=== PATIENT | female | born 1950 | race Caucasian/White ===

== ENCOUNTER → 2020-07-21 13:05 | Outpatient (CLI) | payer MEDICARE, SELFPAY ==
--- NOTE | ~2020-07-21 | US_ITS ---
EXAMINATION: US thyroid DATE: 07/21/2020 13:27 INDICATION: Single nontoxic thyroid nodule. TECHNIQUE: Multiple ultrasound images of the thyroid were obtained. COMPARISON: None. FINDINGS: The right thyroid lobe measures 6.4 x 2.6 x 2.1 cm. The left thyroid lobe measures 6.5 x 2.6 x 1.3 c m. The thyroid demonstrates diffusely heterogeneous echogenicity. Vascularity is normal. In the righ t thyroid lobe, there is a 1.9 cm solid, very hypoechoic, thphf-dzvy-enwp nodule with smooth margin w ithout echogenic foci (TI-RADS TR4). In the left thyroid lobe, there is a 1.5 cm solid, very hypoecho ic, ugypa-mmbu-divd nodule with ill-defined margin without echogenic foci (TR4). In the left thyroid lobe, there is a 10 mm solid, hypoechoic, rqcta-ozmd-ltin nodule with ill-defined margin without echo genic foci (TR4). IMPRESSION: 1. Multinodular goiter. Ultrasound-guided fine-needle aspiration of the 2 largest nodules is recommen ded. Reviewed, dictated and finalized at location A. IMPRESSION: 1. Multinodular goiter. Ultrasound-guided fine-needle aspiration of the [address] nodules is recommended.
== END ==
PROVIDERS: PCP Family Medicine; Visit Provider Family Medicine
DX: E04.2 Nontoxic multinodular goiter (principal)
CPT/HCPCS: 76536

== ENCOUNTER 2020-08-02 09:08 | Outpatient (CLI) | payer MEDICARE, SELFPAY ==
--- NOTE | ~2020-08-02 | US_ITS ---
EXAMINATION: US FNA w image guidance, US FNA additional DATE: 08/02/2020 10:27 INDICATION: Bilateral thyroid nodules TECHNIQUE: A time-out was performed to verify the patient's name, date of , and procedure to be performed . The procedure and its benefits and risks were discussed with the patient. Risks specifically discus sed included bleeding and infection. The patient understood the risks and agreed to proceed. The righ t neck was prepped and draped in the usual sterile manner. 2.5 mL 1% lidocaine was used for local an esthesia. 6 passes were made with a 25G needle into the lesion. Appropriate needle location was doc umented with continuous sonographic guidance. Attention was then turned to the left thyroid nodule. T he left neck was prepped and draped in the usual sterile manner. 3 mL 1% lidocaine was used for loca l anesthesia. 6 passes were made with a 25G needle into the lesion. Appropriate needle location was documented with continuous sonographic guidance. A sterile bandage was applied. There were no immed iate complications. FINDINGS: Grayscale ultrasound images demonstrate biopsy needles advanced into a 2.1 cm hypoechoic nodule at th e inferior right thyroid lobe. Subsequent images demonstrate biopsy needles advanced into a 1.2 cm hy poechoic nodule at the left thyroid lobe. IMPRESSION: 1. Successful ultrasound-guided fine needle aspiration of the hypoechoic solid right thyroid nodule of concern measuring 2.1 cm in the current study. 2. Successful ultrasound-guided fine-needle aspiration of the hypoechoic solid left thyroid nodule of concern measuring 1.2 cm in the current study. Reviewed, dictated and finalized at location A. [employer] IMPRESSION: 1. Successful ultrasound-guided fine needle aspiration of the hypoechoic solid right thyroid nodule of concern measuring 2.1 cm in the current study. 2. Successful ultrasound-guided fine-needle aspiration of the hypoechoic solid left thyroid nodule of concern measuring 1.2 cm in the current study.
== END 2020-08-02 09:09 | disposition home or self-care (01) ==
PROVIDERS: PCP Family Medicine; Visit Provider Family Medicine
DX: E04.2 Nontoxic multinodular goiter (principal)
CPT/HCPCS: 10005; 10006; 88173; 88305; 88342

== ENCOUNTER → 2020-12-18 00:51 | Outpatient (CLI) | payer MEDICARE, SELFPAY ==
[2020-12-18 19:13] LABS: SARS-CoV-2 RNA PCR Negative
== END ==
PROVIDERS: PCP Family Medicine; Visit Provider Internal Medicine Gastroenterology
DX: Z01.812 Encounter for preprocedural laboratory examination (principal); Z20.822 Contact with and (suspected) exposure to COVID-19
CPT/HCPCS: C9803; U0003; U0005

== ENCOUNTER 2020-12-22 02:22 | Day surgery (SDC) | payer MEDICARE, SELFPAY ==
[2020-12-09 10:34] VITALS: BMI 48.2
[2020-12-22 08:56] VITALS: BP 115/96; PULSE 86; RESP 18; TEMP 36.2; O2SAT 98; BMI 47.2
[2020-12-22] MEDS: LACTATED RINGERS 1,000 ML 150 ML IV CONT (09:07)
--- NOTE | 2020-12-22 09:26 | P.PNAN_ITS ---
Anes - Initial Pre Proc Eval Procedure: Operation Date: 12/22/20 10:00 Proposed Procedures p Screening Colonoscopy - Brian Magana MD Date/Time: 12/22/20 09:26 Surgeon: Brian Magana MD Pre Op Diagnosis: neoplasm screening Patient Data Age: 70 Gender: F Height: 5 ft 2 in Weight: 117 kg Last Vital Signs Temp 97.1 F L 12/22/20 08:56 Pulse 86 12/22/20 08:56 Resp 18 12/22/20 08:56 BP 115/96 H 12/22/20 08:56 Pulse Ox 98 12/22/20 08:56 Allergies Allergy/AdvReac Type Severity Reaction Status Date / Time No Known Allergies Allergy Verified 12/22/20 08:54 Home Medications Medication Instructions Recorded Confirmed Type Adult Multivitamin Extra VitD3 1 tablet PO DAILY 12/09/20 12/22/20 History Caltrate 600 plus D 1 tablet PO BID 12/09/20 12/22/20 History atorvastatin 20 mg PO DAILY 12/09/20 12/22/20 History levothyroxine 150 mcg PO DAILY 12/09/20 12/22/20 History meloxicam 7.5 mg PO DAILY 12/09/20 12/22/20 History niacin 500 mg PO QAM 12/09/20 12/22/20 History pravastatin 20 mg PO DAILY 12/09/20 12/22/20 History Patient hx anesthesia problems: none Family hx anesthesia problems: none PMFSH Past Medical History Medical History (Updated 12/22/20 @ 09:26 by Hunter Montes De Oca MD) Anemia Hyperlipidemia Morbid obesity Family History Family History (Updated 05/17/17 @ 13:29 by DOCTOR UNKNOWN) Mother Family history of malignant neoplasm of ovary Father Family history of heart disease in male family member before age 55 Social History Social History Smoking status: Never smoker Alcohol intake: current Drinks per week: 1 Alcohol use details: WINE Substance use: never Substance use type: does not use Living arrangements: alone Additional living arrangements comments: 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 SHE STATES IT WILL BE HER BROTHER OR SISTER. Gender identity (if verbalized by the patient): Female Spiritual care concerns: No Anes - Eval Final PreProcedure Day of Procedure 12/22/20 09:26 Patient weight: morbidly obese Heart: regular rate and rhythm Lungs: clear to auscultation Airway: Mallampati scale class III Neurological: alert and oriented Last oral intake: >/= 8 hours ASA classification: III Emergent: no Anesthetic plan: proceed Anesthesia type and monitoring: general GIVS and standard monitoring Informed Consent: The patient's anesthetic plan and its attendant risks and benefits were discussed with the patient/family/POA. Questions were solicited and answers provided to the satisfaction of the patient/family/POA.
--- NOTE | 2020-12-22 09:44 | P.HP_ITS ---
History of Present Illness History of Present Illness Consent: Risks, benefits, and alternatives have been discussed and questions answered. Patient agrees to proceed with procedure. Chief complaint: neoplasm screening Narrative: Naomy Perez is a 70 year old female here for colon cancer screening. She did have a polyp removed 10 years ago Review of Systems Review of Systems: All systems reviewed & are unremarkable except as noted in HPI and below PMFSH Past Medical History Medical History Anemia Hyperlipidemia Morbid obesity Family History Family History Mother Family history of malignant neoplasm of ovary Father Family history of heart disease in male family member before age 55 Social History Social History Smoking status: Never smoker Alcohol intake: current Drinks per week: 1 Alcohol use details: WINE Substance use: never Substance use type: does not use Living arrangements: alone Additional living arrangements comments: 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 SHE STATES IT WILL BE HER BROTHER OR SISTER. Gender identity (if verbalized by the patient): Female Spiritual care concerns: No Meds Home Medications and Allergies Home Medications Medication Instructions Recorded Confirmed Type Adult Multivitamin Extra VitD3 1 tablet PO DAILY 12/09/20 12/22/20 History Caltrate 600 plus D 1 tablet PO BID 12/09/20 12/22/20 History atorvastatin 20 mg PO DAILY 12/09/20 12/22/20 History levothyroxine 150 mcg PO DAILY 12/09/20 12/22/20 History meloxicam 7.5 mg PO DAILY 12/09/20 12/22/20 History niacin 500 mg PO QAM 12/09/20 12/22/20 History pravastatin 20 mg PO DAILY 12/09/20 12/22/20 History Allergies Allergy/AdvReac Type Severity Reaction Status Date / Time No Known Allergies Allergy Verified 12/22/20 08:54 Vital Signs Vital Signs - 24 hr 12/22/20 08:56 Temperature 36.2 C L Pulse Rate 86 Respiratory Rate 18 Blood Pressure 115/96 H Pulse Oximetry 98 Exam Resp: Auscultation: clear to auscultation bilaterally Cardio: Rate: regular rate Rhythm: regular rhythm GI: GI Palp: Yes Soft to palpation and No Tenderness to palpation present (GI) Assessment and Plan Assessment and plan (1) Colon cancer screening: Code(s): Z12.11 - Encounter for screening for malignant neoplasm of colon Status: Acute Assessment and Plan: Colonoscopy with possible biopsy or polypectomy or cautery or injection of substances.
[2020-12-22 10:18] VITALS: BP 114/76; PULSE 80; RESP 21; O2SAT 98
[2020-12-22 10:28] VITALS: BP 115/86; PULSE 77; RESP 21; O2SAT 100
[2020-12-22 10:38] VITALS: BP 105/82; PULSE 79; RESP 20; O2SAT 100
== END 2020-12-22 10:47 | disposition home or self-care (01) ==
PROVIDERS: PCP Family Medicine; Visit Provider Internal Medicine Gastroenterology
PROC: 0DJD8ZZ Inspection of Lower Intestinal Tract, Via Natural or Artificial Opening Endoscopic (ICD-10-PCS; CPT 45378; principal; 2020-12-22 10:00)
DX: Z12.11 Encounter for screening for malignant neoplasm of colon (principal); K57.30 Diverticulosis of large intestine without perforation or abscess without bleeding; Z86.010 Personal history of colon polyps; E78.5 Hyperlipidemia, unspecified; D64.9 Anemia, unspecified; E66.01 Morbid (severe) obesity due to excess calories; Z68.42 Body mass index [BMI] 45.0-49.9, adult
CPT/HCPCS: G0105; C9803; J2704; J7120; U0003; U0005

== ENCOUNTER → 2022-12-05 14:30 | Outpatient (CLI) | payer MEDICARE, SELFPAY ==
--- NOTE | ~2022-12-05 | MM_ITS ---
EXAMINATION: MM screening [facility] BI w sharon HISTORY: Screening mammogram TECHNIQUE: Craniocaudal and mediolateral oblique 3-D tomosynthesis images were obtained and synthetic 2-D images were generated. CAD analysis was submitted and interpreted. COMPARISON: 10/09/2019, 08/19/2018, 03/29/2015 BREAST PARENCHYMAL COMPOSITION: The breasts are almost entirely fatty. FINDINGS: RIGHT BREAST: An asymmetry is present in the middle third of the outer breast 10 cm from the nipple o n the craniocaudal view. LEFT BREAST: No suspicious mass, calcification, or architectural distortion are identified to suggest malignancy. There has been no suspicious interval change. IMPRESSION: 1. Right breast asymmetry. 2. Additional mammographic views and possible breast ultrasound are recommended. BI-RADS Category 0: Incomplete: Needs additional imaging evaluation. Reviewed, dictated and finalized at location A. [employer]ING [employer]ER IMPRESSION: 1. Right breast asymmetry. 2. Additional mammographic views and possible breast ultrasound are recommended . BI-RADS Category 0: Incomplete: Needs additional imaging evaluation.
== END ==
PROVIDERS: PCP Family Medicine; Visit Provider Family Medicine
DX: Z12.31 Encounter for screening mammogram for malignant neoplasm of breast (principal); R92.8 Other abnormal and inconclusive findings on diagnostic imaging of breast
CPT/HCPCS: 77063; 77067

== ENCOUNTER → 2023-01-09 08:41 | Outpatient (CLI) | payer MEDICARE, SELFPAY ==
--- NOTE | ~2023-01-09 | MMUS_ITS ---
EXAMINATION: MM diagnostic neo RT w sharon, US breast RT limited HISTORY: Right mammographic asymmetry reported in middle third of outer breast 10 cm from nipple on s creening craniocaudal view of 12/05/2022 TECHNIQUE: Additional 3-D tomosynthesis images of right breast were performed and synthetic 2-D image s were generated. CAD analysis was submitted and interpreted. High resolution upper outer quadrant ri ght breast ultrasound was performed. COMPARISON: 12/05/2022 bilateral screening mammogram BREAST PARENCHYMAL COMPOSITION: There are scattered areas of fibroglandular density. FINDINGS: MAMMOGRAPHIC FINDINGS: No suspicious mass or architectural distortion, malignant constipation, skin thickening or retraction is detected. ULTRASOUND: No suspicious mass or shadowing, cyst or other significant sonographic finding is noted in the upper outer quadrant of right breast. IMPRESSION: 1. No mammographic evidence of malignancy 2. Routine annual mammographic screening is recommended BI-RADS Category 1: Negative Reviewed, dictated and finalized at location A. IMPRESSION: 1. No mammographic evidence of malignancy 2. Routine annual mammographic screening is recommended BI-RADS Category 1: Negative
== END ==
PROVIDERS: PCP Family Medicine; Visit Provider Family Medicine
DX: R92.8 Other abnormal and inconclusive findings on diagnostic imaging of breast (principal)
CPT/HCPCS: 76642; 77061; 77065; G0279

== ENCOUNTER 2023-11-05 14:37 | Outpatient (CLI) | payer MEDICARE, SELFPAY ==
--- NOTE | ~2023-11-05 | XR_ITS ---
XR knee LT min 4V DATE: 11/05/2023 15:01 INDICATION: Left knee joint pain TECHNIQUE: [place] and standing AP, PA and lateral views COMPARISON: 12/13/2015 left knee FINDINGS: There is moderately prominent loss of medial compartment joint space height. There is mild periarticular spurring at the patellofemoral compartment. Lateral compartment joint space is well pre served. No fracture or dislocation or joint effusion. No radiopaque intra-articular loose body or chondrocalc inosis. No periosteal reaction or bone destruction. IMPRESSION: Osteoarthritis, most prominent at the medial compartment Reviewed, dictated and finalized at location B. [employer]
== END 2023-11-05 14:38 | disposition home or self-care (01) ==
PROVIDERS: PCP Family Medicine; Visit Provider Family Medicine
DX: M17.12 Unilateral primary osteoarthritis, left knee (principal)
CPT/HCPCS: 73564

== ENCOUNTER 2024-02-05 13:05 | Outpatient (CLI) | payer MEDICARE, SELFPAY ==
--- NOTE | ~2024-02-05 | MM_ITS ---
EXAMINATION: MM screening neo BI w sharon HISTORY: Screening mammogram TECHNIQUE: Craniocaudal and mediolateral oblique 3-D tomosynthesis images were obtained and synthetic 2-D images were generated. CAD analysis was submitted and interpreted. COMPARISON: January 09, 2023 diagnostic right mammogram and Limited right breast ultrasound December 05, 2022, October 09, 2019 bilateral screening mammogram examinations BREAST PARENCHYMAL COMPOSITION: The breasts are almost entirely fatty. FINDINGS: There is no evidence of suspicious mass, calcification, or architectural distortion to sugg est malignancy in either breast. There has been no suspicious interval change. IMPRESSION: 1. No mammographic evidence of malignancy. 2. Recommend routine screening mammography in one year. BI-RADS Category 1: Negative Reviewed, dictated and finalized at location B.
== END 2024-02-05 13:06 ==
PROVIDERS: PCP Family Medicine; Visit Provider Family Medicine
DX: Z12.31 Encounter for screening mammogram for malignant neoplasm of breast (principal)
CPT/HCPCS: 77063; 77067

== ENCOUNTER 2025-03-20 11:02 | Outpatient (CLI) | payer MEDICARE, SELFPAY ==
--- NOTE | ~2025-03-20 | MM_ITS ---
EXAMINATION: MM screening [facility] BI w sharon HISTORY: Screening TECHNIQUE: Craniocaudal and mediolateral oblique 3-D tomosynthesis images were obtained and synthetic 2-D images were generated. CAD analysis was submitted and interpreted. COMPARISON: Comparison to multiple prior studies sequentially, with oldest reviewed study dated 03/29. BREAST PARENCHYMAL COMPOSITION: Not Dense: The breasts are almost entirely fatty. FINDINGS: There is no evidence of suspicious mass, calcification, or architectural distortion to sugg est malignancy in either breast. There has been no suspicious interval change. IMPRESSION: 1. No mammographic evidence of malignancy. 2. Recommend routine screening mammography in one year. BI-RADS Category 1: Negative Reviewed, dictated and finalized at location A.
== END 2025-03-20 11:03 | disposition home or self-care (01) ==
LOC: MICIMG 11:03
PROVIDERS: PCP Physician Assistant; Visit Provider Physician Assistant
DX: Z12.31 Encounter for screening mammogram for malignant neoplasm of breast (principal)
CPT/HCPCS: 77063; 77067